=== PATIENT | female | born 1985 | race Caucasian/White ===

== ENCOUNTER 2024-03-31 09:10 | Emergency (ER) | payer BC, SELFPAY ==
[2024-03-31 09:12] VITALS: BP 137/85; PULSE 77; RESP 14; TEMP 36.8; O2SAT 100; BMI 26.3
--- NOTE | 2024-03-31 09:34 | EX.ED.DYSGE1 ---
HPI History of Present Illness Chief Complaint: Flank Pain Detail of Chief Complaint: Right-sided flank pain and discomfort at the end of urination Informant: patient Onset/Context/Timing Onset: Today Context: Sudden Onset Timing: Continuous Quality: Right flank pain Location: Right flank Current Severity: Mild Maximum Severity: Moderate Worsened by: Nothing specific Relieved by: Nothing Associated Symptoms Associated Symptoms: nausea Narrative Narrative: Patient is a 38-year-old woman status post hysterectomy and bilateral tubal ligation who presents with right flank pain with discomfort and urination. She has not noted any blood in her urine and denies pain or burning with urination. 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 Patient denies fever. Question of chills. She does report nausea. She denies pain like this before. She has no known history of renal or ureterolithiasis. She denies intolerance to greasy fried food. There is no history of biliary disease. She denies pain in the right upper quadrant. Prior similar symptoms: No Recent Illness/Hospitalization: No PFSH PFSH Home Medications ?Medication ?Instructions ?Recorded ?Last Taken ?Type cephalexin 500 mg capsule 500 mg PO Q6 #40 CAPSULES 03/31/24 Unknown Rx Allergy/AdvReac Type Severity Reaction Status Date / Time No Known Allergies Allergy Verified 03/31/24 09:12 Surgical History (Updated 03/31/24 @ 09:40 by Barbara Jurado) H/O kidney removal Social History (Updated 03/31/24 @ 09:[address] Jose Roberto Olivas MD) Smoking Status: Former smoker substance use type: does not use ROS ROS ED Constitutional Constitutional ED: Reports chills; Denies fever(s), subjective or sweats Cardiovascular Cardiovascular: Denies chest pain or palpitations Respiratory/Chest Respiratory/Chest: Denies cough, dyspnea or dyspnea on exertion Gastrointestinal Gastrointestinal: Reports abdominal pain and nausea; Denies constipation, diarrhea, melena or vomiting Genitourinary Genitourinary ED: Reports urinary frequency; Denies dysuria or hematuria Musculoskeletal Musculoskeletal: Reports other Details: Right flank ; Denies arthralgias, back pain, myalgias or neck pain Integumentary Denies Abrasions or rash Neurologic Neurologic: Denies headache(s), paresthesias or weakness Hematologic/Lymphatic Hematologic/Lymphatic: Reports systems reviewed and no addt'l complaints, except as documented EXAM Physical Exam Const Vital Signs: 03/31/24 09:12 Temperature 98.2 F Temperature Source Temporal Pulse Rate 77 Respiratory Rate 14 Blood Pressure 137/85 H Blood Pressure Mean 102 Pulse Ox 100 Oxygen Delivery Method Room Air Positive well nourished and well developed Constitutional Narrative: Vital signs noted blood pressure slightly elevated. Patient appears uncomfortable. She does not appear toxic. General Appearance ED: well developed; Negative for cyanotic, diaphoretic or pallor HEENT Reports moist mucous membranes HEENT Narrative: Head is atraumatic, cephalic. Ears normal. Nares patent. Eyes PERRL and EOMs intact bilaterally General Eye ED: Negative for pale conjunctiva or scleral icterus Neck no lymphadenopathy, supple and no JVD Resp normal respiratory effort and clear to auscultation bilaterally Cardio regular rate, regular rhythm, S1 normal heart sound, S2 normal heart sound and no murmurs GI normal to inspection, nondistended, normoactive bowel sounds, non-tender, non-distended and no masses; Negative for hepatosplenomegaly Back/Spine General Back: CVA tenderness right Thoracic Spine / Upper Back: Negative for thoracic spinal tenderness Extremity normal to inspection General Extremety ED: Negative for edema or tenderness General Extremity: Negative for edema Neuro oriented x3 and CN's II-XII intact bilaterally Sensorium / Orientation: alert Psych mental status grossly normal Skin no rashes or lesions noted, no wounds and skin turgor normal General Skin Exam: Negative for jaundice or pallor MDM MDM MDM Narrative Medical decision making narrative: Differential diagnosis is hydronephrosis, complicated urinary tract infection, obstructing ureteral stone will Corticool include CBC, BMP and UA. If there is any concern based on urine for renal or ureterolithiasis will obtain CAT scan since patient only has 1 kidney. Lab Data Attestation: I reviewed the patient's lab results. Lab results narrative: White count is upper end of normal. There is a slight shift with no bandemia. Basic metabolic panel is unremarkable with normal renal function. UA is consistent with infection. Urine culture was sent. Patient received a gram of Rocephin. Labs: Laboratory Results - last 24 hr 03/31/24 09:35 WBC 10.9 RBC 4.27 Hgb 13.4 Hct 39.3 MCV 92.0 MCH 31.4 MCHC 34.1 RDW Std Deviation 41.1 RDW Coeff of Sameera 12.2 Plt Count 309 MPV 8.9 Immature Gran % (Auto) 0.300 Neut % (Auto) 79.8 H Lymph % (Auto) 14.3 L Hand % (Auto) 4.4 Eos % (Auto) 0.8 Baso % (Auto) 0.4 Absolute Neuts (auto) 8.7 H Absolute Lymphs (auto) 1.56 Nucleated RBC % 0 Sodium 137 Potassium 3.9 Chloride 105 Carbon Dioxide 26.0 Anion Gap 6 BUN 10 Creatinine 0.80 Estim Creat Clear Calc 103.56 Est GFR (MDRD) Af Amer 105 Est GFR (MDRD) Non-Af 87 BUN/Creatinine Ratio 12.6 Glucose 95 Calcium 9.2 Urine Color Yellow Urine Clarity Cloudy Urine pH 7.0 Ur Specific [place] 1.005 Urine Protein 30 H Urine Glucose (UA) Normal Urine Ketones Negative Urine Occult Blood 250 H Urine Nitrite Negative Urine Bilirubin Negative Urine Urobilinogen Normal Ur Leukocyte Esterase 500 H Urine RBC 10-25 SEEN Urine WBC 50-100 SEEN Ur Squamous Epith Cells 0-5 SEEN Urine Bacteria 1+ Urine Mucus 0 SEEN Treatment and Re-Evaluation :: She has a scheduled appointment for this coming April 04 with Merline Torres for her annual. Will contact her to make her aware that she has pyelonephritis especially since she only has 1 kidney. Comments:: Spoke with Dr. Perez. He was made aware of patient's history physical and reason for follow-up. Discharge Plan Triage Chief Complaint: Flank Pain ED Provider: Jose Roberto Olivas Dx/Rx/DC Orders Clinical Impression: Acute bacterial pyelonephritis, Acquired solitary kidney Instructions: ED Pyelonephritis, Female (Adult) Prescriptions: New cephalexin 500 mg capsule 500 mg PO Q6 Qty: 40 0RF Primary Care Provider: Merline Torres Referrals: Merline Torres, [employer] [Primary Care Provider] - Keep Jose Juan appointment Activity Restrictions/Additional Instructions: 1. Return if you have a temperature greater than 100.5, shaking chills, vomiting and unable to eat or drink or take your medication. 2. Keep appointment with nurse practitioner Melissa. Print Language: Sami Disposition Disposition: Home, Self Care
[2024-03-31] MEDS: 0.9% Normal Saline (1000mL) 1,000 ML 250 ML IV (09:36)
[2024-03-31] MEDS: Morphine 4 MG/ML Syringe IV (09:37)
[2024-03-31] MEDS: Ondansetron 4 MG/2 ML Vial IV (09:37)
[2024-03-31 09:49] LABS: Mucous, Urine 0 SEEN /hpf (<or=2+)
[2024-03-31 09:51] LABS: Absolute Lymphocyte Count 1.56 X10^3/uL (0.83-4.51); Absolute Neutrophil Count 8.7 X10^3/uL (2.0-7.7); Basophil# 0.04 X10^3/uL; Basophil% 0.4 % (0-1); Color, Urine Yellow (Yellow); Eosinophil# 0.09 X10^3/uL; Eosinophils% 0.8 % (0-5); Glucose, Dipstick Normal (Normal); Hematocrit 39.3 % (37-47); Hemoglobin 13.4 g/dL (12.0-15.0); Ketone-Dipstick Negative (Negative); Leukocyte Esterase-Dipstick 500 /ul (Negative); Lymphocyte # 1.56 X10^3/ul (0.83-4.51); Lymphocyte % 14.3 % (19-41); Mean Corp Hgb Conc 34.1 g/dL (32-36); Mean Corpuscular Hgb 31.4 pg (27.0-32.0); Mean Platelet Vol. 8.9 fl (6.2-12.0); Monocyte# 0.48 X10^3/uL; Monocyte% 4.4 % (0-10); NRBC Flagged by Analyzer 0 % (0-5); Neutrophil # 8.68 X10^3/uL (2.7-7.7); Neutrophil % 79.8 % (47-70); Nitrite-Dipstick Negative (Negative); Occult Blood-Urine 250 /ul (Negative); Platelet Count 309 K/mm3 (150-450); Protein-Dipstick 30 mg/dl (Negative); RBC Distribution Width CV 12.2 % (11.6-14.6); RBC Distribution Width SD 41.1 fl (35.1-43.9); Red Blood Count 4.27 M/mm3 (4.2-5.4); Specific Gravity, Urine 1.005 (1.002-1.030); Urine Bilirubin Dipstick Negative (Negative); Urine Clarity Cloudy (Clear); Urine Urobilinogen Normal (Normal); White Blood Count 10.9 K/mm3 (4.4-11.0)
[2024-03-31 10:07] LABS: Anion Gap 6 (5-15); BUN 10 mg/dL (7-18); BUN/Creat Ratio 12.6 RATIO (10-20); Calcium,Total 9.2 mg/dL (8.5-10.1); Chloride 105 mmol/L (98-107); EST Glomerular Filtration Rate 87 mL/min (>60); Est Glom Filt Rate - Afr Amer 105 mL/min (>60); Estimated Creatinine Clearance 103.56 ml/min; Glucose 95 mg/dL (74-106); Potassium 3.9 mmol/L (3.5-5.1); Sodium Level 137 mmol/L (136-145)
[2024-03-31 10:10] LABS: Bacteria 1+ /hpf (None Seen); Red Blood Cells-Urine 10-25 SEEN /hpf (0-5); Squamous Epithelial Cells - UA 0-5 SEEN /hpf (5-10); White Blood Cells 50-100 SEEN /hpf (0-5)
[2024-03-31] MEDS: Ceftriaxone 1 GM/50 ML BAG IV (10:46)
[2024-03-31 11:11] VITALS: BP 123/80; PULSE 53; RESP 18; O2SAT 100
--- NOTE | 2024-03-31 11:45 | CT_ITS ---
STUDY: CT ABDOMEN AND PELVIS WITHOUT CONTRAST REASON FOR EXAM: Female, 38 years old. Kidney Stone -- History bilateral tubal ligation and hysterectomy. Left flank pain. RADIATION DOSAGE (If Supplied By Facility): CTDIvol = ( 7.68 ) mGy, DLP = ( 400.84 ) mGycm TECHNIQUE: Transaxial images were obtained from the dome of the diaphragm to the symphysis pubis without oral contrast, and without intravenous contrast. Sagittal and coronal images were reconstructed. Individualized dose optimization techniques were used for this CT. COMPARISON: None. FINDINGS: The visualized lung bases are unremarkable. The visualized portions of the heart are within normal limits. Normal liver. Normal gallbladder and extrahepatic biliary system. Normal spleen. Normal pancreas. Normal bilateral adrenal glands. There is compensatory hypertrophy of the right kidney. The patient is status post left nephrectomy. Normal visualized stomach. Normal small intestine. Normal colon. The appendix is visualized and appears normal. Normal abdominal aorta. Normal inferior vena cava. Normal retroperitoneum. Normal urinary bladder. There is absence of the uterus consistent with a prior hysterectomy. There is a 3.8 cm x 3.6 cm complex cystic structure in the left adnexa. Correlation with ultrasound recommended. Calcified phleboliths are seen in the pelvis. Normal abdominal wall. Normal osseous structures. CT/Abdomen/Pelvis without Cont IMPRESSION: The patient is status post left nephrectomy. 3.8 cm x 3.6 cm complex cystic structure in the left adnexa as described. Correlation with ultrasound is recommended for further evaluation. Electronically Signed: Lavon Aguayo MD at 12:11 EDT ,
[2024-03-31] MEDS: Ketorolac 15 MG/ML Vial IV (11:52)
--- NOTE | 2024-03-31 12:38 | US_ITS ---
STUDY: ULTRASOUND OF THE FEMALE PELVIS - COMPLETE REASON FOR EXAM: Female, 38 years old. Right ovarian cyst with severe abrupt pain eval to -- Need color-flow to evaluate for torsion LMP: Patient is status post hysterectomy. TECHNIQUE: Transvaginal TECHNICAL QUALITY: Adequate. COMPARISON: Comparison is made with prior CT scan done earlier today. FINDINGS: The patient is status post hysterectomy. The right ovary is visualized. The right ovary measures 3.1 cm x 2.6 cm x 2 cm. There is no right ovarian cyst or ovarian mass. There is no visualized right adnexal mass or complex lesion. There is normal arterial and normal venous vascularity. The left ovary is visualized. The left ovary measures 4.2 cm x 3.7 cm x 3.3 cm. There is a complex cystic structure in the left ovary measuring 3.6 cm x 3.5 cm x 3.4 cm. There is no visualized left adnexal mass or complex lesion. There is normal arterial and normal venous vascularity. There is minimal fluid in the cul-de-sac. US/Transvaginal Non- IMPRESSION: Status post hysterectomy. Complex cyst in the left ovary. Normal Doppler flow to both ovaries. Electronically Signed: Lavon Aguayo MD at 13:34 EDT ,
[2024-03-31 13:20] VITALS: BP 97/60; PULSE 60; RESP 18; O2SAT 100
[2024-03-31 14:02] VITALS: BP 99/67; PULSE 59; RESP 18; TEMP 36.3; O2SAT 100
== END 2024-03-31 14:09 | disposition home or self-care (01) ==
PROVIDERS: Emergency Provider Emergency Medicine; PCP Nurse Practitioner Family; Visit Provider Emergency Medicine
DX: N10 Acute pyelonephritis (principal); Q60.0 Renal agenesis, unilateral; Z87.891 Personal history of nicotine dependence
CPT/HCPCS: 74176; 76830; 80048; 81001; 85025; 87077; 87086; 87088; 87186; 93976; 96365; 96366; 96375; 96376; 99283; J2405